=== PATIENT | male | born 1975 | race Two or more races ===

== ENCOUNTER 2016-05-27 14:42 | Inpatient (IN) | payer SELFPAY ==
[~2016-05-27] VITALS: Ht 160 cm; Wt 61.0 kg
--- NOTE | ~2016-05-27 | CON ---
PATIENT'S NAME: AMIE HURTADO [facility] AGE: 40 Y [address] ROOM: [address] [address] LOCATION: GPCU ADMIT DATE: 05/27/2016 Consultation DISCHARGE DATE: FAMILY PHYSICIAN: PHYSICIAN, QUINN ATTENDING PHYSICIAN: VINCE FELICIANO V DATE OF CONSULTATION: 05/29/2016 REASON FOR CONSULT: Medication review. HISTORY OF PRESENT ILLNESS: The patient is a 40-year-old male with a history of bipolar disorder and alcohol use disorder with multiple psychiatric and medical hospitalizations related to his drinking. He presents again with alcohol withdrawal, and states that he has been off his medications for about 2 weeks because he has been drinking. The patient says that he is not really depressed or anxious, but wants to get back on his medications. He denies other depressive, manic, or psychotic symptoms, and has no thoughts of dying or suicide. He also says that his withdrawal symptoms are subsiding. The patient plans to return home to his mother and continue outpatient treatment. PAST PSYCHIATRIC HISTORY: The patient has had multiple psychiatric hospitalizations and has attended numerous residential treatments for his drinking. He has a history of recurrent suicidal gestures, but has never attempted suicide in the past. PAST MEDICAL HISTORY: Alcohol withdrawal seizures, GERD, and alcoholic hepatitis. MEDICATIONS: See medication list. ALLERGIES: PENICILLINS AND IODINE. PAST FAMILY AND SOCIAL HISTORY: The patient is single, never , and has no children. He has a high school diploma, and is currently unemployed. He lives with his mother. He denies current legal problems. He denies illicit drug use. FAMILY HISTORY: Not significant for any mental illness. REVIEW OF SYSTEMS: [facility]GE: 40 Y [address] ROOM: [address] [place] [id number] LOCATION: GPCU ADMIT DATE: 05/27/2016 Consultation DISCHARGE DATE: FAMILY PHYSICIAN: , QUINN ATTENDING PHYSICIAN: VINCE FELICIANO V The patient complains of tremors and sweats. Ten systems reviewed and all others negative except as noted. MENTAL STATUS EXAMINATION: The patient is in bed. He appears drowsy, but is cooperative with the interview. He makes good eye contact. He has a normal psychomotor activity. His speech is soft. He describes his mood as mildly depressed. His affect is reactive and spontaneous. His thoughts are logical and goal directed. He denies suicidal, homicidal, or violent ideations. He denies hallucinations and has no delusions. He is alert and oriented to person and place but not to time. His concentration and memory appear normal. His language is intact. His intelligence is average. His insight and judgment are limited. DIAGNOSES: Bipolar 2 disorder; alcohol withdrawal; and alcohol use disorder, severe. PLAN: Continue olanzapine, Lexapro, and Remeron since the patient says that he does well on the combination. Discontinue hydroxyzine. Consider acamprosate when detoxification is complete, and if no contraindications, schedule outpatient followup with the [facility]. Thank you for your consult. MD LUIS COPPOLA/yadira /[id number] d: 05/29/16 0855 t: 05/29/16 1634, CONSULTATION REPORT
--- NOTE | ~2016-05-27 | DS ---
PATIENT'S NAME: GENESIS [facility] AGE: 40 Y [address] ROOM: [address] [place] [id number] LOCATION: GPCU ADMIT DATE: 05/27/2016 Discharge Summary DISCHARGE DATE: 05/30/2016 FAMILY PHYSICIAN: PHYSICIAN, NO ATTENDING PHYSICIAN: Luciano Estrada V ATTENDING PHYSICIAN: Chandler De Luna M.D. PRIMARY CARE PHYSICIAN: None. FINAL DIAGNOSES: 1. Alcohol intoxication requiring detox. 2. History of alcohol abuse. 3. Depression. 4. Anxiety disorder. 5. Hypertension, resolved. CONSULTATIONS: Psychiatry, Dr. Andrew. PROCEDURES: None. REASON FOR ADMISSION: This is a 40-year-old male with a history of chronic alcohol abuse. The patient had been sober for quite some time. He then presented with alcohol intoxication requesting detox. He was further admitted to [facility], please see Dr. Estrada' admission H and P for further details. DIAGNOSTIC STUDIES: Lactate was done on admission and was 7.5, subsequently after hydration was 0.9 and normal. Troponin I less than 0.04. CBC showed normal white count, hemoglobin, hematocrit, and platelet levels. Serial BMPs were done that showed essentially normal electrolytes. The patient's potassium was 3.3 on admission, was supplemented, and was 3.5 at the time of discharge. Kidney function test was within normal range. The patient had slight elevation in his liver enzymes and had transaminitis. AST 169 on admission, at the time of discharge 129. ALT 184 on admission, at the time of discharge 150. Total bilirubin level was within normal range. PT, INR, and PTT were normal. Lipase and amylase were normal. Blood alcohol level on admission was 0.134. Chest x-ray was done for chest discomfort and showed no acute process. Stool was negative for C. diff. HOSPITAL COURSE: The patient was admitted for evaluation and management of alcohol intoxication requiring detoxification. The patient stated that he was sober for quite some time and later undergone inpatient rehab for alcohol abuse. The patient then relapsed and presented with alcohol intoxication requesting detox. PATIENT'S NAME: [facility] AGE: 40 Y [address] ROOM: [address] [place] [address] LOCATION: GPCU ADMIT DATE: 05/27/2016 Discharge Summary DISCHARGE DATE: 05/30/2016 FAMILY PHYSICIAN: , NO ATTENDING PHYSICIAN: Luciano Estrada V The patient was admitted. He was placed on the detox pathway. He was hydrated with a banana bag. He was placed on a Librium taper for withdrawal symptoms. The patient did not exhibit any signs of withdrawal symptoms during this admission. He did not have any seizures. He did have hypertension on admission that was monitored very closely. By the time of discharge, the patient's hypertension resolved and blood pressure was very well controlled. The patient continued to do better. Psychiatry consult was obtained for the patient, and the patient was given his home medications. The patient had been off his home medications for depression and anxiety for quite some time. His home medications were restarted. He was given information about inpatient rehab for alcoholism. He then continued to do well. He was ambulating in the hallway. He was tolerating p.o. He continued to do well, and was discharged and asked to follow up with his primary care physician. DISCHARGE INSTRUCTIONS: The patient was discharged on regular diet with activity as tolerated. He is to follow up with outpatient clinic at [facility] with Silas on 06/06/2016. Follow up with PCP in 4 to 5 days' time. PCP to check a CBC and a BMP. Follow up with Psychiatry as scheduled. Alcohol cessation discussed in great detail during this admission. The patient also inquired about [facility] for inpatient rehab. We gave him the information for [facility] for inpatient rehab for alcohol abuse. DISCHARGE MEDICATIONS: 1. Librium 50 mg p.o. q.8 hours for 3 doses, then taper, stop date 05/31/2016. 2. Librium 25 mg p.o. every 8 hours for 3 doses, stop date 06/01. 3. Lexapro 20 mg p.o. daily. 4. Remeron 15 mg p.o. at bedtime. 5. Zyprexa 10 mg p.o. at bedtime. 6. Protonix 40 mg p.o. daily. This patient was managed by hospitalist and Psychiatry teams during this admission. CHANDLER DE LUNA MD MT/yadira /[id number] d: 06/04/16 0239 t: 06/17/16 1004, DISCHARGE SUMMARY
--- NOTE | ~2016-05-27 | HP ---
[facility] 40 Y [address] ROOM: [place] [id number] LOCATION: GPCU ADMIT DATE: 05/27/2016 History & Physical DISCHARGE DATE: FAMILY PHYSICIAN: PHYSICIAN, NO ATTENDING PHYSICIAN: VINCE FELICIANO V DATE OF SERVICE: CHIEF COMPLAINT: "I almost drank myself to ." HISTORY OF PRESENT ILLNESS: The patient is a 40-year-old male, well known to our service from prior episodes of alcohol intoxication and withdrawal. He presented to the ER with complaints of drinking 12 pack of beer daily for approximately 1 month. The patient endorses multiple aches and pains, and some anxiety and had some very mild symptoms of alcohol withdrawal in the ER and has received Ativan, and at this point, is feeling better. He denies any suicidal or homicidal ideations, and endorses willingness to get better. He denies any chest pain, shortness of breath, but does admit to nausea and retching and abdominal pain. REVIEW OF SYSTEMS: All systems have been reviewed and are negative except pertinent positives mentioned above. PAST MEDICAL HISTORY: Significant for: 1. Alcoholism. 2. Delirium tremens. 3. Withdrawal seizures. 4. Depressive disorder. CURRENT MEDICATIONS: None. The patient is supposed to be on a tailored psychiatric regimen, but he is not taking any medicines. PAST SURGICAL HISTORY: None. SOCIAL HISTORY: The patient has been a long-term alcohol abuser. He also smokes approximately a pack a day of tobacco and continues to do so. He denies any illicit substance use. [facility] AGE: 40 Y [address] ROOM: [address] [place] [id number] LOCATION: GPCU ADMIT DATE: 05/27/2016 History & Physical DISCHARGE DATE: FAMILY PHYSICIAN: PHYSICIAN, NO ATTENDING PHYSICIAN: VINCE FELICIANO V PHYSICAL EXAMINATION: VITAL SIGNS: Heart rate 108 and regular, blood pressure 160/100, respirations are 22, and saturating 98% on room air. He is afebrile. GENERAL: Appears as a malnourished middle-aged male, in no acute distress. NEUROLOGIC: Nonfocal. PSYCHIATRIC: Reveals some anxiety and labile mood, but preserved cognition and affect. The patient is not fully oriented though thinking that he is actually at [facility]. He denies any suicidal or homicidal ideations. EYES: Show pupils are equal and reactive to light. LYMPHATIC: Shows no cervical lymphadenopathy. ENDOCRINE: Shows no thyromegaly. LUNGS: Clear to auscultation in all spivey. CARDIOVASCULAR: Heart rate is regular and tachycardic with no appreciable murmurs, gallops, or rubs. GASTROINTESTINAL: Abdomen is soft, nontender, and nondistended. GENITOURINARY: Reveals no costovertebral angle tenderness. VASCULAR: Reveals 2+ pedal pulses. MUSCULOSKELETAL: Shows no muscle or joint abnormalities. SKIN: Warm and dry. LABORATORY DATA AND IMAGING STUDIES: Studies performed in the ER significant for a lactate of 7.5, potassium of 3.3, and glucose of 123. AST 169, ALT 189. Alcohol was 0.134. Cardiac enzymes are negative. CBC is unremarkable as is differential. ASSESSMENT AND PLAN: This is a 40-year-old male, who was admitted with: 1. Alcohol detoxication. The patient told me that his withdrawal symptoms set in within 24 hours of his last drink which was this morning. We will put him on p.r.n. Ativan, pushes in the course of the night. We will initiate a Librium taper tomorrow. We will monitor his liver function tests given that we are putting him on Librium, though I think that the great efficacy of Librium compensates for the risks of liver side effects. We will start him on a banana bag. We will check his magnesium and replete as needed. We will monitor him on telemetry. 2. Tobaccoism. I will start the patient on a nicotine patch. 3. Alcoholism. We will discuss the patient's wishes for treatment, once he is detoxified. 4. Elevated lactate. We will repeat his electrolytes in the morning, after we hydrate him and feed him. 5. Mild alcoholic hepatitis. We will trend his liver function tests. 6. Deep venous thrombosis prophylaxis. Will be nonpharmacologic for the time being, though we will place him on Lovenox if he stays for more than 48 hours. PATIENT'S NAME: AMIE HURTADO [facility] AGE: 40 Y [address] ROOM: [place] [address] [facility] ADMIT DATE: 05/27/2016 History & Physical DISCHARGE DATE: FAMILY PHYSICIAN: PHYSICIAN, NO ATTENDING PHYSICIAN: VINCE FELICIANO V 7. Accelerated hypertension. We will monitor his blood pressure with treatment of his withdrawal symptoms and we will consider starting him on antihypertensive agents. Additional management will depend on clinical course. Time dedicated to this patient's encounter is 35 minutes. MD IVANA GONZALEZ/yadira /[id number] D: 340 T: HISTORY & PHYSICAL
--- NOTE | ~2016-05-27 | ER ---
[facility] 40 Y [address] ROOM: [place] [address] LOCATION: GPCU ADMIT DATE: 05/27/2016 ER/Outpatient Report DISCHARGE DATE: FAMILY PHYSICIAN: PHYSICIAN, NO ATTENDING PHYSICIAN: VINCE FELICIANO V CHIEF COMPLAINT: Alcohol intoxication with abdominal and chest discomfort. HISTORY OF PRESENT ILLNESS: The patient states that he has been drinking every day for the last 2 months and in fact, has not had anything besides alcohol for the last week. His last drink was at 3 a.m. He has a history of alcoholism and delirium tremens with withdrawal seizures. He has been through treatment before. He is originally from [place], but is living with his mother. He states that for the last several days, he has had chest discomfort, which is associated with nausea and vomiting. He denies any blood at the same. He is otherwise doing okay. He is a little shaky, but otherwise feels okay. PAST MEDICAL HISTORY: Documented on the record and reviewed by me. SOCIAL HISTORY: Documented on the record and reviewed by me. MEDICATIONS: Documented on the record and reviewed by me. ALLERGIES: DOCUMENTED ON THE RECORD AND REVIEWED BY ME. REVIEW OF SYSTEMS: All systems were reviewed and negative except as noted in the HPI. PHYSICAL EXAMINATION: VITAL SIGNS: Blood pressure 168/119, pulse 114, respiratory rate is 18, temperature 98.6, SpO2 is 96% on room air. Pain is rated at 5/10. GENERAL: Age-appropriate male. No obvious pain or distress. Resting comfortably on exam table. NEUROLOGIC: Awake and alert. He is tremulous. Speech is appropriate. Affect is normal. The patient is conversant and appropriate. No focal deficits or asymmetry. HEENT: Normocephalic, atraumatic. Eyes are PERRL. Oropharynx is clear. NECK: Supple. Trachea is midline. CHEST: Heart is tachycardic with no murmurs. [facility] AGE: 40 Y [address] ROOM: [place] [address] LOCATION: GPCU ADMIT DATE: 05/27/2016 ER/Outpatient Report DISCHARGE DATE: FAMILY PHYSICIAN: PHYSICIAN, NO ATTENDING PHYSICIAN: VINCE FELICIANO V LUNGS: Clear to auscultation bilateral grossly. ABDOMEN: Soft with diffuse upper abdominal epigastric and right upper quadrant tenderness with no focal findings and no significant pain or tenderness. BACK: Nontender to palpation throughout. No CVA tenderness. EXTREMITIES: Warm and well perfused with brisk capillary refill. LABS AND X-RAYS: Sodium is 139, potassium 3.3, chloride is 100, CO2 is 24, BUN is 1, creatinine is 1.0. GFR is greater than 60. LFTs are notable for a total bilirubin of 0.4, alkaline phosphatase is 59, AST of 169, ALT of 184. Amylase and lipase are 62 and 233 respectively. CK-MB 0.6. Troponin I is below threshold. WBC is 5.9, hemoglobin is 17.0, platelets of 231. INR is 1.0. Lactate is 7.5, serum alcohol level is 0.134. EKG reveals sinus tachycardia with no obvious ischemia. No significant dysrhythmia appreciated. Intervals appear to be appropriate. There is some baseline variation. No comparison immediately available. IMPRESSION: 1. Alcohol intoxication with history of delirium tremens requiring detox. 2. Lactic acidemia with mild anion gap. 3. Elevated alcohol level. 4. Hepatitis likely alcoholic. 5. Chest discomfort secondary to vomiting and alcoholic gastritis. EMERGENCY DEPARTMENT COURSE: The patient was seen and evaluated as above. IV was obtained and the patient was given aspirin. His workup is nonischemic at this time. He was given a liter of fluids and a liter of banana bag. He was given Ativan IV to help with his withdrawal symptoms. That helped him feel better. His tremulousness improved, blood pressure came down, and tachycardia improved. He does state that he has a history of hypertension, but does not take any medications for it. I spoke with Dr. Feliciano, hospitalist, and we will admit him to PCU for further evaluation and treatment of his impending withdrawal given his history of delirium tremens. All questions were answered and the patient was admitted without further issue. MD AVNI BARNEY/yadira PATIENT'S NAME: AMIE HURTADO [facility] AGE: 40 Y [address] ROOM: [address] [address] LOCATION: [facility] ADMIT DATE: 05/27/2016 ER/Outpatient Report DISCHARGE DATE: FAMILY PHYSICIAN: QUINN NAIK ATTENDING PHYSICIAN: VINCE FELICIANO V /[id number] d: 05/27/162319 t: 06/10/16 0804, OUTPATIENT REPORT
[~2016-05-27 14:42] MED LIST: ACETAMINOPHEN325 MG; ADVIL200 MG PO; ANTABUSE500 MG PO; ATARAX10 MG PO; ATARAX25 MG PO; ATIVAN 1 MG1 MG PO; FOLIC ACID1 MG PO; HYDROXYZINE HCL25 MG PO; LEXAPRO20 MG PO; LEXAPRO5 MG PO; LIBRIUM25 MG PO; MELATONIN5 MG PO; MEN'S ONE DAIL1 EACH PO; PEPCID20 MG PO; PROTONIX20 MG PO; REMERON15 MG PO; THIAMINE HCL100 MG PO; TREXAN (REVIA)50 MG PO; VISTARIL25 M1 PO; VISTARIL50 MG PO; ZOFRAN4 MG PO; ZYPREXA10 MG PO
[2016-05-27 15:11] LABS: BASOPHIL # 0.1 K/uL (0.0-0.2); BASOPHIL % 1.5 %; EOSINOPHIL # 0.1 K/uL (0.0-0.5); HEMATOCRIT 47.8 % (37.0-53.0); IMMATURE GRANULOCYTE % 0.2 %; LYMPHOCYTE # 1.4 K/uL (0.8-4.0); LYMPHOCYTE % 23.8 %; MCH 30.8 pg (27.0-34.0); MCHC 35.6 gm/dL (32.0-36.5); MONOCYTE # 0.7 K/uL (0.0-1.0); MONOCYTE % 11.5 %; MPV 9.9 fl (9.4-12.4); NEUTROPHIL # (ANC) 3.6 K/uL (1.4-9.0); NRBC % 0 /100WBC (0-0.00); RBC 5.52 M/uL (4.00-6.00); RDW-CV 12.4 % (11.9-14.6); WBC 5.9 K/uL (4.0-11.0)
[2016-05-27 15:12] LABS: MCV 86.6 fl (83.0-98.0); PLATELET COUNT 231 K/uL (150-450)
[2016-05-27 15:21] LABS: PROTIME 10.3 SECONDS (9.6-11.1); PTT 27 SECONDS (25-32)
[2016-05-27 15:33] LABS: ALBUMIN 4.3 gm/dL (3.5-5.0); ALK PHOS 59 IU/L (33-138); ALT 184 IU/L (12-78); ANION GAP 18.3 (10.0-19.0); AST 169 IU/L (10-40); BLOOD UREA NITROGEN 1 mg/dL (6-24); CALCIUM 9.2 mg/dL (8.5-10.5); CHLORIDE 100 mMol/L (96-110); CO2 24 mMol/L (22-32); ESTIMATED GFR (MDRD EQUATION) > 60; POTASSIUM 3.3 mMol/L (3.7-5.1); SODIUM 139 mMol/L (135-145); TOTAL PROTEIN 8.2 g/dL (6.0-8.4)
[2016-05-27 15:34] LABS: TOTAL BILIRUBIN 0.4 mg/dL (0.0-1.5)
[2016-05-27] MEDS ORDERED: ADVIL200 MG (19:22)
--- NOTE | 2016-05-27 21:17 | NUR ---
40 Y/O MALE ADMITTED FOR ETOH DETOX. PT STATES HE HAS BEEN DRINKING FOR THE PAST 2 WEEKS ABOUT 18 BEERS/DAY. DENIES ANY HARD LIQUOR. STATES HE HAS NOT EATEN FOR DAYS. C/O RT SIDED ABD PAIN, SOB AND CHEST PAIN WHEN HE DRINKS. ALSO C/O SHOOTING PAIN IN LT SIDE OF HIS HEAD FOR THE PAST SEVERAL DAYS. C/O BEING WEAK, AND DIZZY, STATES HE HAS NOT BATHED IN A LONG TIME EITHER. ALLERGIES - SHELLFISH, IODINE MEDICAL & SURGICAL HISTORY - SEIZURES A SHILD AND MULT SEIZURES WHILE HE HAS DETOXED IN THE PAST. RT BROKEN TIBIAL & LT FX TIBIA, RT ING HERNIA, RT ROTATOR CUFF, HTN, PALPITATIONS, CHRONIC COUGH, HX OF DIVERTICULUTIS, HX OF BLOODY TARRY STOOLS, DEPRESSION, ANXIETY, BIPOLAR. SMOKES 1PPD REPORT GIVEN TO PT PRIMARY CARE NURSE ALEXEY RN ADM EDUCATION DONE WITH PT
[2016-05-28 03:53] LABS: ALBUMIN 3.9 gm/dL (3.5-5.0); ALK PHOS 49 IU/L (33-138); ALT 150 IU/L (12-78); ANION GAP 13.7 (10.0-19.0); AST 129 IU/L (10-40); CALCIUM 8.7 mg/dL (8.5-10.5); CHLORIDE 107 mMol/L (96-110); CO2 27 mMol/L (22-32); CREATININE 0.8 mg/dL (0.6-1.3); ESTIMATED GFR (MDRD EQUATION) > 60; MAGNESIUM 1.8 mg/dL (1.3-2.6); PHOSPHORUS 3.5 mg/dL (2.5-4.9); POTASSIUM 3.7 mMol/L (3.7-5.1); SODIUM 144 mMol/L (135-145); TOTAL PROTEIN 7.4 g/dL (6.0-8.4)
[2016-05-28 03:59] LABS: BLOOD UREA NITROGEN 3 mg/dL (6-24); TOTAL BILIRUBIN 0.6 mg/dL (0.0-1.5)
--- NOTE | 2016-05-28 05:24 | NUR ---
Significant Event:Patient more alert throughout the shift can answer orientation questions correctly, but is still very forgetful. HR 70-110s. Sats >95% on RA. Lung sounds clear to diminished. Hyperactive BS with 1 liquid stool noted. Tenderness to RUQ with palpation. Generalized weakness with transfers but a SBA. No c/o N/V. 1mg IV Morphine for generalized pain that patient has a difficult time explaining. Ativan x1 for tremors. Patient has rested off and on states that once he falls asleep he is having dreams about drinking. Patient states that he wants to get help. Wants to go to [facility] and will address once patient is detoxed. Follow up:Continue to monitor with withdrawals. Librium and Banana bag to start today.
[2016-05-28] MEDS ORDERED: LEXAPRO10 MG PO (10:25)
[2016-05-28] MEDS ORDERED: VISTARIL25 M1 (10:26)
[2016-05-28] MEDS ORDERED: ZYPREXA10 MG PO (10:27)
--- NOTE | 2016-05-28 11:03 | NUR ---
Reviewed chart and talked with Dr Duarte and pt nurse. Pt reports to nurse he has been sober for 2 years (not accurate) and that he has been off his psych meds for a week (not sure if accurate) and that he gets them through [facility]. Has stated wants to go back to [facility]. Psych Consult ordered for depression/anxiety and med review. Called and talked with Lubna in [facility] at [facility], they received psych consult. They are familiar with Mr. Orozco and she said he might be getting his meds here if he qualifies through a certain bill but not sure. She has passed the psych consult along to the psychiatrist. She said if he isn't suicidal likely won't qualify to come over to [facility], if he wants inpt treatment then would be best to try to get him to [facility] to finish his detox and they can get him to [facility]. If he doesn't want inpt treatment then can set up outpt counseling. Vp Analysis will follow and see pt after we see what psychiatry recommendations are for patient.
--- NOTE | 2016-05-28 15:38 | NUR ---
Significant Event: AOx3, forgetful, seems to be poor historian. C/o tenderness to RUQ of abdomen but no other c/o pain. SBP 130s-160s, heart rates 60s-80s, occasionally to 100s when up and walking. Lungs clear-dim to bases. Bowel sounds hypo this a.m., becoming hyper this p.m. and pt reports mod loose stool this afternoon. Banana bag infusing to L) AC without complication. Ambulates with 1PA, is somewhat unsteady on feet. Tolerates well. Librium pathway and patient reports medication helps. Reports bad dreams at times and not sleeping well. Not encouraging further benzo use as long as librium controls symptoms. Plan is for CD consult through [facility]. Pleasant and cooperative. Follow up: Continue withdrawal protocol. Last drink approx 1200 on 05/27, according to pt today. Otherwise per plan of care.
[2016-05-29 04:32] LABS: ANION GAP 14.5 (10.0-19.0); CALCIUM 8.9 mg/dL (8.5-10.5); CHLORIDE 109 mMol/L (96-110); CO2 23 mMol/L (22-32); CREATININE 0.8 mg/dL (0.6-1.3); ESTIMATED GFR (MDRD EQUATION) > 60; POTASSIUM 3.5 mMol/L (3.7-5.1); SODIUM 143 mMol/L (135-145)
[2016-05-29 04:36] LABS: BLOOD UREA NITROGEN 7 mg/dL (6-24)
--- NOTE | 2016-05-29 05:09 | NUR ---
Significant Event: Patient has been alert/oriented x3. Poor historian, forgetful at times. Vital signs are stable, continues on room air. Denied pain throughout the night. CIWA scores have been < 8 throughout the night. Ativan x1 given for patient complaining of anxiety. Continues on Librium tapering doses. Banana bag infusing at 40 mL/hr. No stools this shift, appetite improving. Slept well throughout the night. Follow up: Per care management's note, patient does not qualify for inpatient at [facility] if he is not suicidal. If he wants inpatient rehab, he needs to go through [facility] and then go to [facility]. Otherwise needs to set up outpatient counseling.
--- NOTE | 2016-05-29 14:02 | NUR ---
Social visit with Esequiel this afternoon. SW Junior Technical Writer Marilyn was present. Went over the suggestions of Dr. Metz with Esequiel. He tells me he knows he can't go to inpatient treatment but he would like to go to [facility] for outpatient follow up appointments and to get help with his medications. I offered to make his first follow up appointment for him. He did take me up on this offer so I went ahead and called over to [facility] outpatient clinic. Talked with Kristi, she states that they will schedule a follow up appointment for June 06 at 1045 with Erika Rosen. I wrote this appointment on his one page discharge sheet in his chart & also gave him a sticky note with the date and time on it as well. Viry denies the need for any additional resources. He plans on following up with AA meetings here in [place] and then he also hopes to find a job. He denies any issues with obtaining his medications upon discharge. States that [facility] helps him out with that and that they are all covered. No other questions, needs or concerns. Will continue to follow and assist.
--- NOTE | 2016-05-29 15:10 | NUR ---
Significant Event: pt has had 3 loose bms today, to check for cdiff, hat in toilet now. Pt sleeps all day, awakes for meals. K po given and lovenox started. No c/o pain. Pt did have some visual disturbance once but got better. IV s.locked. Pt encourage to drink more fluids. [facility] came this am and made rec. Pt to go home and do O/P therapy and AA Follow up:
--- NOTE | 2016-05-30 06:31 | NUR ---
Significant Event: Patient is alert/oriented x3, continues to be forgetful at times. Has been impulsive throughout the night due to frequent diarrhea and voiding. He has had excellent PO fluid and food intake last night. He is C. diff negative. Ativan given x1 last night with HS meds. Continues on Librium tapering dose. Follow up: D/C to home today and will do outpatient counseling.
[2016-05-30] MEDS ORDERED: ATARAX25 MG PO (10:11)
[2016-05-30] MEDS ORDERED: TREXAN (REVIA)50 MG PO (10:19)
[2016-05-30] MEDS ORDERED: PROTONIX40 MG PO (10:22)
--- NOTE | 2016-05-30 13:22 | NUR ---
1015 Call from APOLINAR Gong that Esequiel was going to be dismissed but he didn't have money for a ride home so he was needing a taxi voucher and he also requested resources to inpatient treatment centers. I stopped by Esequiel's room, talked with him about resources and provided him with a list to take home so he could use them when he was dismissed. I also gave him a taxi voucher to get him home. I let him know once his dismissal orders were complete, APOLINAR Gong would call the [employer] company and they would come pick him up and take him home. I asked if he had any additional questions or concerns about going home. He denies any needs. Denies needing help with filling his medications. 1230 Call from APOLINAR Gong that she started to go over medications with him, and he now states he can't pay for his medications so he needs them filled. I phoned over to [facility], talked with Lubna as I knew he was part of the [facility] for medication assistance through them. Lubna states she will talk with Dr. Metz and see what she can figure out as far as filling his medications go. She phoned me back and let me know that she talked with Dr. Metz and per Dr. Metz, he wasn't going to fill them as he wasn't his primary provider, he knows that he makes appointment with [facility] and then never shows up to them and he needs to come in and do the LB95 paperwork out again with them. Lubna states that he needs to call on Thursday to the [facility] and set up a time to come in and do the LB95 paperwork so he can get his medications filled through them. I let her know that I would share this with Esequiel, and in the meantime, I would see if we could fill 7 days worth of his medications to get him by until he was seen at [facility]. She was fine with this plan. I went into Esequiel's room, updated him to all of the above, gave him a sticky note with the number to [facility] that he needed to call on Thursday at 0800 and get a time set up to go in and do paperwork so he could get his medicaions filled. I let him know that we filled 7 days for him, so it was very important that he got all of the paperwork done next week to get additional medication for himself. He voiced understanding to this. Thanked me for my time. No additional questions, needs or concerns. Will continue to follow and assist. Plan home.
--- NOTE | 2016-05-30 14:09 | NUR ---
Discharge Summary: Patient A/O x 3. VSS on RA: HR 70, RR 16, BP 120/72, O2 saturation 98%, RR 16, and afebrile. Patient treated for alcohol detox, and is now showing no signs or symptoms of detox. Discharge instructions included: new medications/ medication changes, getting medication refills, follow-up appointments with psychiatrist and PCP, information about depression, and information about rehabilitaton programs for alcohol ([facility] [place]). Patient verbalizes understanding of all teaching and states that he has no further questions. Reinforced (as did Care management) that patient is to follow up with [facility], so he can get back on track with his appointments and medications. [facility] pharmacy filled his prescriptions for 1 week until he is able to get them from them. Flu shot given prior to dismissal. Left PCU at approximately 1345 per wheelchair to [address] and then into a tax cab (given voucher), and then home to self care. No other needs at time of discharge. Monitor and PIV discontinued. Dante JIANG 05/30/16
[2016-07-20] MEDS ORDERED: MELATONIN5 M2 PO (12:41)
== END 2016-05-30 13:40 | disposition disaster alternative care site (69) | DRG 897 ==
LOC: GMED 14:42 → GMSU 16:52 → GPCU 16:52
PROVIDERS: Emergency Medicine; Family Medicine; ADMIT Internal Medicine
DX: F10.239 Alcohol dependence with withdrawal, unspecified (principal); K70.10 Alcoholic hepatitis without ascites; F31.81 Bipolar II disorder; F10.229 Alcohol dependence with intoxication, unspecified; F17.210 Nicotine dependence, cigarettes, uncomplicated; I10 Essential (primary) hypertension; Z23 Encounter for immunization
CPT/HCPCS: C9113; G0008; G0480; J1650; J2060; J2270; J3411; J3475; J7030; J7050